=== PATIENT | male | born 1955 | race Caucasian/White ===

== ENCOUNTER 2016-09-24 11:18 | Day surgery (SDC) | payer BC, OTHER ==
[2016-09-23 15:31] VITALS: BMI 39.6
[2016-09-24] MEDS ORDERED: PROPOFOL 20 ML ONE ×6 (11:58)
[2016-09-24] MEDS ORDERED: LIDOCAINE HCL/PF 2% SDV 5ML VIAL ONE (11:58)
[2016-09-24 12:59] VITALS: TEMP 98.2
[2016-09-24 13:23] VITALS: BP 153/90; PULSE 59
--- NOTE | 2016-09-27 13:36 | PATH ---
Surgical Pathology Report Patient Name: CHI BROWN [facility]. Rec. #: [id number] /Age/Gender: 1955 (Age: 61) / M Account: [id number] Location: U-ENDOSCOPY Taken: 09/24/2016 Received: 09/24/2016 Reported: 09/27/2016 Physicians: Angelica Mendoza M.D. Specimen(s) Received A: BX SIGMOID COLON POLYP B: BX PROXIMAL TRANSVERSE COLON POLYP Clinical History Screening Diverticulosis, colon polyp Final Diagnosis A. COLON, SIGMOID, POLYPS x2, BIOPSY: MULTIPLE FRAGMENTS OF HYPERPLASTIC POLYP. B. COLON, PROXIMAL TRANSVERSE, POLYP, BIOPSY: FRAGMENTS OF TUBULAR ADENOMA. Electronically Signed Pedro Osorio M.D. Gross Description A. Received in formalin, labeled "biopsy sigmoid colon polyp" are 5 crane, irregular portions of soft tissue ranging from 0.2-0.4 cm in greatest dimension. The specimens are submitted in toto in one cassette. B. Received in formalin, labeled "biopsy proximal transverse colon polyp" are 5 crane, irregular portions of soft tissue ranging from 0.1-0.3 cm in greatest dimension. The specimens are submitted in toto in one cassette. 09/24/201609/24/2016
== END 2016-09-24 13:30 | disposition home or self-care (01) ==
LOC: JASU-ENDO 11:18
PROVIDERS: ATTEND Internal Medicine Gastroenterology
PROC: 0DBN8ZX Excision of Sigmoid Colon, Via Natural or Artificial Opening Endoscopic, Diagnostic (ICD-10-PCS; 2016-09-24)
PROC: 0DBL8ZX Excision of Transverse Colon, Via Natural or Artificial Opening Endoscopic, Diagnostic (ICD-10-PCS; principal; 2016-09-24 12:00)
DX: D12.5 Benign neoplasm of sigmoid colon (principal); D12.3 Benign neoplasm of transverse colon; K57.30 Diverticulosis of large intestine without perforation or abscess without bleeding; K64.8 Other hemorrhoids
CPT/HCPCS: 88305-TC

== ENCOUNTER 2017-02-08 09:46 | Emergency (ER) | payer BC ==
[2017-02-08 10:10] VITALS: BP 146/96; PULSE 71; TEMP 98.2; BMI 40.2
--- NOTE | 2017-02-08 11:55 | PDOC ---
History of Present Illness - General Chief Complaint: Psychiatric Stated Complaint: SLEEP DISORDER Time Seen by Provider: 02/08/17 11:28 History Source: Patient - History of Present Illness Timing/Duration: constant Severity: severe Associated Symptoms: denies: chest pain, cough, diaphoresis, fever/chills, headaches, loss of appetite, malaise, nausea/vomiting, shortness of breath, weakness Past History - Past Medical History Allergies/Adverse Reactions: Allergies Allergy/AdvReac Type Severity Reaction Status Date / Time No Known Allergies Allergy Verified 02/08/17 10:05 Home Medications: Ambulatory Orders Amlodipine Besylate/Benazepril [Lotrel 5-10 mg Capsule] 1 each PO DAILY #0 capsule 02/20/12 Losartan Potassium 25 mg PO HS #0 tablet 02/20/12 Multivitamin [Multivitamins] 1 each PO DAILY #0 capsule 02/20/12 Pramipexole Di-HCl [Mirapex] 0.5 mg PO TID 03/04/14 Levothyroxine [Synthroid -] 100 mcg PO DAILY 04/24/16 Allopurinol [Zyloprim -] 100 mg PO DAILY 09/23/16 Krill Oil 500 mg PO DAILY 09/23/16 Lorcaserin HCl [Belviq] 10 mg PO BID 09/23/16 Potassium 99 mg PO BID 09/23/16 Ubidecarenone/Vit E Acetate [Co Q-10 100 mg Softgel] 1 each PO DAILY 09/23/16 Anemia: No Asthma: No Cancer: No Cardiac Disorders: No CVA: No COPD: No CHF: No Dementia: No Diabetes: No GI Disorders: Yes (DIVERTICULOSIS;SBO;COLON POLYPS) Disorders: Yes (KIDNEY STONES) HTN: Yes Hypercholesterolemia: Yes Liver Disease: No Seizures: No Thyroid Disease: Yes (HYPOTHYROID) - Surgical History Abdominal Surgery: Yes (VENTRAL hernia repair x2) Appendectomy: No Cardiac Surgery: No Cholecystectomy: No Lung Surgery: No Neurologic Surgery: Yes (SPINAL FUSION) Orthopedic Surgery: (CERVICAL SPINE FUSION) - Suicide/Smoking/Psychosocial Hx Smoking Status: No Smoking History: Never smoked Have you smoked in the past 12 months: No Number of Cigarettes Smoked Daily: 0 If you are a former smoker, when did you quit?: 5 YEARS AGO Information on smoking cessation initiated: No Hx Alcohol Use: No Drug/Substance Use Hx: No Substance Use Type: None Hx Substance Use Treatment: No Review of Systems - Review of Systems Constitutional: No: Chills, Fever Respiratory: No: Cough, Shortness of Breath Cardiac (ROS): No: Chest Pain ABD/GI: No: Constipated, Diarrhea, Nausea, Vomiting : No: Dysuria Neurological: No: Headache, Weakness, Dizziness *Physical Exam - Vital Signs Last Vital Signs Temp Pulse Resp BP Pulse Ox 98.2 F 71 18 146/96 100 02/08/17 10:06 02/08/17 10:06 02/08/17 10:06 02/08/17 10:06 02/08/17 10:06 - Physical Exam General Appearance: Yes: Appropriately Dressed. No: Apparent Distress HEENT: positive: Normal Voice Neck: positive: Supple Respiratory/Chest: positive: Lungs Clear, Normal Breath Sounds. negative: Respiratory Distress Cardiovascular: positive: Regular Rate, S1, S2 Integumentary: positive: Dry, Warm Neurologic: positive: Fully Oriented, Alert, Normal Mood/Affect Medical Decision Making - Medical Decision Making 02/08/17 11:47 . 61 yo obesed male, h/o hypothyroidism on meds, here complaining of sleeping difficulties. Patient reports that for the past month, despite being able to fall asleep and stay asleep, he doesn't feel quite rested which has caused him to fall asleep at work multiple times throughout the day. Has since followed up with his PMD and now has sleep study to rule out sleep apnea scheduled for March 03. Patient feels that symptoms have gotten worse and decided to come to ED today. Not complaining of any anxiety or depression and no medical complaints at this time. Pt well josr and stable. I contacted pt's PMD, Dr Mir , who is associated with [facility], who does not recommend any meds at this time. States besides scheduled sleep study, will also get out-pt sleep consult for pt. Pt informed of this and will continue to follow up *DC/Admit/Observation/Transfer Diagnosis at time of Disposition: Sleep difficulties - Discharge Dispostion Disposition: HOME Condition at time of disposition: Good - Patient Instructions Additional Instructions: Please follow-up with your PMD for outpatient sleep consult and your scheduled sleep study on 03/03/17
== END 2017-02-08 11:57 | disposition home or self-care (01) ==
LOC: JERFT 09:46 → JER 09:46 → JERFT 11:57
DX: G47.8 Other sleep disorders (principal); I10 Essential (primary) hypertension; E78.00 Pure hypercholesterolemia, unspecified; E03.9 Hypothyroidism, unspecified; E66.9 Obesity, unspecified; Z68.41 Body mass index [BMI] 40.0-44.9, adult
CPT/HCPCS: 99281-25

== ENCOUNTER 2019-07-14 23:38 | Emergency (ER) | payer OTHER, BC ==
[2019-07-14 23:46] VITALS: BP 147/96; PULSE 70; TEMP 98.3; BMI 40.4
--- NOTE | 2019-07-14 23:57 | PDOC ---
History of Present Illness - General Chief Complaint: Laceration Stated Complaint: HEAD LAC Time Seen by Provider: 07/14/19 23:41 History Source: Patient Exam Limitations: No Limitations - History of Present Illness Initial Comments: 07/14/19 23:55 This is a 64-year-old male who comes in complaining of a laceration to his left forehead area. Patient works at [employer] and it has had on a shelf bracket. Patient did not pass out did not lose consciousness and denies any other complaints. Patient's tetanus is unknown. Allergies: as per nursing notes Past Medical History: Hypertension, thyroid Social history: Lives with family. No smoking. No alcohol. No illicit drugs. Surgical history: None General: No fevers or chills, no weakness, no weight loss HEENT: No change in vision. No sore throat,. No ear pain, S forehead laceration CardioVascular: no chest discomfort. No shortness of breath Respiratory:No cough, or wheezing. Gastrointestinal: no nausea, vomiting, diarrhea or constipation, No rectal bleeding Genitourinary: No dysuria, hematuria, or frequency Musculoskeletal: No joint or muscle pain or swelling Neurologic: No headache, vertigo, dizziness or loss of consciousness Psychiatric: nor depression Skin: No rashes or easy bruising Endocrine: no increased thirst or abnormal weight change Allergic: no skin or latex allergy All other systems reviewed and normal GENERAL: The patient is awake, alert, and fully oriented, in no acute distress. HEAD: There is approximately a 3 cm very superficial laceration with no active bleeding. EYES: Pupils equal, round and reactive to light, extraocular movements intact, sclera anicteric, conjunctiva clear. EXTREMITIES:atraumatic, Normal range of motion, no edema. NEUROLOGICAL: Normal speech, normal gait. PSYCH: Normal mood, normal affect. SKIN: Warm, Dry, normal turgor, no rashes or lesions noted. Procedure note laceration cleaned with peroxide and closed with Dermabond patient tolerated well 07/14/19 23:56 Past History - Past Medical History Allergies/Adverse Reactions: Allergies Allergy/AdvReac Type Severity Reaction Status Date / Time No Known Allergies Allergy Verified 02/08/17 10:05 Home Medications: Ambulatory Orders Amlodipine Besylate/Benazepril [Lotrel 5-10 mg Capsule] 1 each PO DAILY #0 capsule 02/20/12 Losartan Potassium 25 mg PO HS #0 tablet 02/20/12 Multivitamin [Multivitamins] 1 each PO DAILY #0 capsule 02/20/12 Pramipexole Di-HCl [Mirapex] 0.5 mg PO TID 03/04/14 Levothyroxine [Synthroid -] 100 mcg PO DAILY 04/24/16 Allopurinol [Zyloprim -] 100 mg PO DAILY 09/23/16 Krill Oil 500 mg PO DAILY 09/23/16 Lorcaserin HCl [Belviq] 10 mg PO BID 09/23/16 Potassium 99 mg PO BID 09/23/16 Ubidecarenone/Vit E Acet [Co Q-10 100 mg Softgel] 1 each PO DAILY 09/23/16 Anemia: No Asthma: No Cancer: No Cardiac Disorders: No CVA: No COPD: No CHF: No Dementia: No Diabetes: No GI Disorders: Yes (DIVERTICULOSIS;SBO;COLON POLYPS) Disorders: Yes (KIDNEY STONES) HTN: Yes Hypercholesterolemia: Yes Liver Disease: No Seizures: No Thyroid Disease: Yes (HYPOTHYROID) - Surgical History Abdominal Surgery: Yes (VENTRAL hernia repair x2) Appendectomy: No Cardiac Surgery: No Cholecystectomy: No Lung Surgery: No Neurologic Surgery: Yes (SPINAL FUSION) Orthopedic Surgery: (CERVICAL SPINE FUSION) - Psycho Social/Smoking Cessation Hx Smoking Status: No Smoking History: Never smoked Have you smoked in the past 12 months: No Number of Cigarettes Smoked Daily: 0 If you are a former smoker, when did you quit?: 5 YEARS AGO Hx Alcohol Use: No Drug/Substance Use Hx: No Substance Use Type: None Hx Substance Use Treatment: No *Physical Exam - Vital Signs Last Vital Signs Temp Pulse Resp BP Pulse Ox 98.3 F 70 16 147/96 98 07/14/19 23:41 07/14/19 23:41 07/14/19 23:41 07/14/19 23:41 07/14/19 23:41 Discharge - Discharge Information Problems reviewed: Yes Clinical Impression/Diagnosis: Forehead laceration Qualifiers: Encounter type: initial encounter Qualified Code(s): S01.81XA - Laceration without foreign body of other part of head, initial encounter Condition: Stable Disposition: HOME - Admission No - Follow up/Referral Referrals: Maria Del Rosario Mir MD [Primary Care Provider] - - Patient Discharge Instructions Patient Printed Discharge Instructions: DI for Laceration Repair With Dermabond Additional Instructions: Read over and follow the Dermabond instructions. Return to the emergency department immediately with ANY new, persistent or worsening symptoms. Continue any medications as previously prescribed by your physician. You should follow up with your primary doctor as soon as possible regarding today's emergency department visit. . Please make sure your doctor reviews the results of your emergency evaluation. Thank you for coming to the Emergency Department today for your care. It was a pleasure to see you today. Please note that your evaluation is INCOMPLETE until you follow-up with your doctor. - Post Discharge Activity
[2019-07-15] MEDS ORDERED: DIPHTH,PERTUSS(ACELL),TET 0.5 ML DISP.SYRIN IM ONE ×2 (00:04→00:06)
== END 2019-07-15 00:10 | disposition home or self-care (01) ==
LOC: FER 23:38
PROC: 3E0234Z Introduction of Serum, Toxoid and Vaccine into Muscle, Percutaneous Approach (ICD-10-PCS; principal; 2019-07-14)
DX: S01.81XA Laceration without foreign body of other part of head, initial encounter (principal); I10 Essential (primary) hypertension; E78.00 Pure hypercholesterolemia, unspecified; E07.9 Disorder of thyroid, unspecified; K92.9 Disease of digestive system, unspecified
CPT/HCPCS: 90715; 99282-25

== ENCOUNTER 2020-08-08 05:35 | Day surgery (SDC) | payer BC ==
[2020-08-08 11:18] VITALS: TEMP 97.7
[2020-08-08 11:47] VITALS: PULSE 67
[2020-08-08 12:27] VITALS: BP 153/82
== END 2020-08-08 12:45 | disposition home or self-care (01) ==
LOC: JASU-ENDO 05:35
PROVIDERS: ATTEND Internal Medicine Gastroenterology
PROC: 0DBL8ZZ Excision of Transverse Colon, Via Natural or Artificial Opening Endoscopic (ICD-10-PCS; 2020-08-08)
PROC: 0DBK8ZX Excision of Ascending Colon, Via Natural or Artificial Opening Endoscopic, Diagnostic (ICD-10-PCS; principal; 2020-08-08 10:00)
DX: Z12.11 Encounter for screening for malignant neoplasm of colon (principal); D12.2 Benign neoplasm of ascending colon; D12.3 Benign neoplasm of transverse colon; K57.30 Diverticulosis of large intestine without perforation or abscess without bleeding; K59.89 Other specified functional intestinal disorders; Z86.010 Personal history of colon polyps; Z83.71 Family history of colonic polyps
CPT/HCPCS: 88305-TC

== ENCOUNTER 2022-07-29 03:51 | Day surgery (SDC) | payer BC ==
[2022-07-27 11:16] VITALS: BMI 32.5
[2022-07-29] MEDS ORDERED: MIDAZOLAM HCL 2 MG/2 ML SINGLE DOSE VIAL ONE (08:59)
[2022-07-29] MEDS ORDERED: PROPOFOL 20 ML ONE (08:59)
[2022-07-29] MEDS ORDERED: GENTAMICIN SO4 80 MG/2 ML VIAL ONE (09:04)
[2022-07-29] MEDS ORDERED: ceFAZolin SODIUM 1 GM VIAL ONE (09:04)
[2022-07-29] MEDS ORDERED: GENTAMICIN 80MG PREMIX BAG IVPB ONE (09:09)
[2022-07-29] MEDS ORDERED: ceFAZolin SODIUM 1 GM VIAL IVPB ONE (09:09)
[2022-07-29] MEDS ORDERED: IOHEXOL 300 MG/ML INFUS..BTL IV ONE ×3 (09:11→09:14)
[2022-07-29] MEDS ORDERED: DEXAMETHASONE SOD PHOSPHATE 4 MG/1 ML VIAL ONE (09:11)
[2022-07-29] MEDS ORDERED: oxyCODONE HCL 5 MG TABLET PO PRN ×2 (09:40→09:46)
[2022-07-29] MEDS ORDERED: DEXTROSE 5%-0.45% SALINE 1,000 ML IV SCH (09:45)
[2022-07-29] MEDS ORDERED: ONDANSETRON 4 MG/2 ML VIAL IVPUSH PRN (09:46)
[2022-07-29] MEDS ORDERED: ACETAMINOPHEN 1000 MG/100 ML BAG IVPB ONE (09:46)
[2022-07-29] MEDS ORDERED: ACETAMINOPHEN INJECTION 100 ML IVPB ONE (09:54)
[2022-07-29] MEDS ORDERED: LACTATED RINGERS SOLUTION 1,000 ML IV SCH (10:00)
[2022-07-29] MEDS ORDERED: oxyCODONE HCL 5 MG TABLET PO ONE (10:55)
[2022-07-29] MEDS ORDERED: oxyCODONE HCL 5 MG TABLET ONE (10:56)
[2022-07-29 11:02] VITALS: RESP 20
[2022-07-29 14:01] VITALS: BP 140/78; PULSE 67; TEMP 98
== END 2022-07-29 11:45 | disposition home or self-care (01) ==
LOC: JASU-SURG 03:51
PROVIDERS: ATTEND Urology
PROC: 0TC18ZZ Extirpation of Matter from Left Kidney, Via Natural or Artificial Opening Endoscopic (ICD-10-PCS; principal; 2022-07-29 08:30)
PROC: 0T778DZ Dilation of Left Ureter with Intraluminal Device, Via Natural or Artificial Opening Endoscopic (ICD-10-PCS; 2022-07-29 08:30)
DX: N20.0 Calculus of kidney (principal)
CPT/HCPCS: 76000-TC-FY; 94760; C1758; C2617

== ENCOUNTER 2025-02-08 06:11 | Day surgery (SDC) | payer BC ==
[2025-02-06 09:58] VITALS: BMI 33.9
[2025-02-08 10:21] VITALS: TEMP 98
[2025-02-08 11:08] VITALS: BP 160/83; PULSE 63; RESP 17
== END 2025-02-08 11:34 | disposition home or self-care (01) ==
LOC: JASU-ENDO 06:11
PROVIDERS: ATTEND Internal Medicine Gastroenterology
PROC: 0DBH8ZX Excision of Cecum, Via Natural or Artificial Opening Endoscopic, Diagnostic (ICD-10-PCS; principal; 2025-02-08 10:00)
DX: Z12.11 Encounter for screening for malignant neoplasm of colon (principal); D12.2 Benign neoplasm of ascending colon; D12.0 Benign neoplasm of cecum; K64.8 Other hemorrhoids; K57.30 Diverticulosis of large intestine without perforation or abscess without bleeding; K63.89 Other specified diseases of intestine; Z86.0100 Personal history of colon polyps, unspecified
CPT/HCPCS: 88305-TC